=== PATIENT | male | born 1940 | race Caucasian/White ===

== ENCOUNTER 2019-10-05 08:44 | Emergency (ER) | payer MEDICARE, SELFPAY ==
[2019-10-05 08:46] VITALS: BP 130/53; PULSE 52; RESP 16; TEMP 36.4; O2SAT 99; BMI 26.5
[2019-10-05 08:49] VITALS: BP 130/53; PULSE 52; RESP 16; TEMP 36.4; O2SAT 99
--- NOTE | 2019-10-05 09:27 | ED.DCSUM_ITS ---
History of Present Illness <Ilda Peraza - Last Filed: 10/05/19 09:27> Informant: Patient Onset: Yesterday Context: Gradual Onset Timing: Continuous Quality: Wound Location: Left foot Current Severity: Moderate Maximum Severity: Moderate Worsened by: Nothing Relieved by: Nothing Associated Symptoms: Denies Narrative: 78-year-old male sent in from urgent care for a wound on his left foot. He has a scrape between his fourth and fifth toes and has noticed some surrounding redness and is concerned for infection. No fevers. No trauma that he remembers. He does have some neuropathy, he is not a diabetic, but he does not regularly follow with a doctor. He has no other complaints at this time. He is not on daily medicines. Prior similar symptoms: No Recent Illness/Hospitalization: No <Raghu Bond - Last Filed: 10/05/19 10:07> Chief Complaint: Cellulitis Past Medical History Smoking Status: Former smoker <JimbojulianBudyuval - Last Filed: 10/05/19 09:27> Prior records reviewed: Yes Past Medical History: - - Patient has peripheral neuropathy per history Surgical History: no surgical history Lives: Alone Smoking Status: Former smoker Alcohol: Occasional Drugs: None <Raghu Bond - Last Filed: 10/05/19 10:07> - Allergies and Home Meds Allergies/Adverse Reactions: Allergies No Known Allergies Allergy (Verified 10/05/19 08:44) Primary Care Physician: NOT,DEFINED [Primary Care Provider] - Review of Systems All systems negative except as indicated General: Denies: Chills, Fever, Malaise Eyes: Denies: Visual changes - bilaterally, Blurred Vision - bilaterally, Diplopia ENT: Denies: Rhinorrhea, Sore throat Cardiovascular: Denies: Chest pain, Palpitations, Heart racing Respiratory: Denies: Dyspnea, Cough, Sputum Gastrointestinal: Denies: Abdominal pain, Nausea, Vomiting, Diarrhea Genitourinary: Denies: Dysuria, Hematuria, Frequency Musculoskeletal: Reports: Extremity Pain. Denies: Myalgias, Arthralgias, Neck pain, Back pain, Swelling Skin: Reports: Abscess, Wounds. Denies: Rash, Abrasions Neurological: Denies: Headache, Weakness, Parasthesia, Numbness Endocrine: Denies: Polyuria, Polydipsia <Raghu Bond Last Filed: 10/05/19 10:07> Physical Exam Vital Signs/Narrative: Vital Signs Temp Pulse Resp BP Pulse Ox 10/05/19 08:49 97.5 F L 52 L 16 130/53 H 99 10/05/19 08:46 97.5 F L 52 L 16 130/53 H 99 <Ilda Peraza - Last Filed: 10/05/19 09:27> Vital Signs/Narrative: Vital Signs Temp Pulse Resp BP Pulse Ox 10/05/19 08:49 97.5 F L 52 L 16 130/53 H 99 10/05/19 08:46 97.5 F L 52 L 16 130/53 H 99 Inital Vital Signs reviewed: Yes General: Well nourished, Well developed, No Acute Distress Head: Normocephalic, Atraumatic Eyes: Perrl, EOMI ENT: Moist mucous membranes, No rhinorrhea Neck: Supple, Nontender, No lymphadenopathy, No JVD Cardiovascular: Regular rate, Regular rhythm, No murmurs Respiratory: No distress, CTA bilaterally, Chest nontender Abdomen: Soft, Nontender, Nondistended, Normal bowel sounds, No masses Back: Nontender, Normal Inspection Extremities: Nontender, - - Is an abrasion between his fourth and fifth toes of the left foot with surrounding redness and cellulitis extending to the dorsum of the foot approximately to the middle of the dorsum of the foot. There is no redness on the plantar aspect. There is no lymphatic streaking past that point into the proximal foot or up the leg. DP and PT pulse normal as is capillary refill. He has diminished sensation of all 10 toes on both feet which he states is chronic. Skin: Normal color, No rash, No Trauma Neurological: Alert, Oriented x3 Psychological: Normal affect, Normal Mood <Raghu Bond - Last Filed: 10/05/19 10:07> Diagnostic/Tx/Re-eval - Medical Decision Making Patient was seen with Vlad agree with history and physical as above The patient presents with redness and swelling and basically defect of the skin left foot he works at [employer] he does not recall specific injury but reports he may have dropped a pallet or floor brunilda type device on his foot he does not have diabetes but reports he cannot feel his toes he was seen in urgent care and sent to the hospital on exam he has obvious infection involving the left foot there is a defect in the skin between the fourth and fifth toes left foot no foul odor no crepitance neurovascular normal He refuses admission screening labs x-ray see the chart for full details <Ilda Peraza - Last Filed: 10/05/19 09:27> - Medical Decision Making Patient's vital signs are stable. His laboratory work-up is unremarkable. X- ray is unremarkable. He was given IV antibiotics in the emergency department. At this time we do not feel he requires admission. He is not septic. He has no osteomyelitis. We did send a wound culture. He will be started on Bactrim and Keflex. I spoke with the on-call kitchen helper Dr. jon for close follow-up for the patient. He will be discharged home and given return precautions and I instructed him on proper wound care as well. <Raghu Bond - Last Filed: 10/05/19 10:07> ED Disposition <JimbojulianKristopherjerry - Last Filed: 10/05/19 09:27> <Raghu Bond - Last Filed: 10/05/19 10:07> - Plan for ED Patient: Disposition: Home or Assisted Living Diagnosis: Infected abrasion of left foot, Peripheral neuropathy Instructions: Cellulitis, ED PERIPHERAL NEUROPATHY Prescriptions: Smz/Tmp Ds [Bactrim Ds] 1 tab PO BID #14 tab Prescription Printed Cephalexin [Keflex] 500 mg PO Q12 #14 cap Prescription Printed Referrals: Carol Jon DPM [STAFF PHYSICIAN] - 1 Day
[2019-10-05 09:30] LABS: Absolute Lymphocyte Count 2.38 X10^3/uL (0.83-4.51); Absolute Neutrophil Count 7.6 X10^3/uL (2.0-7.7); Basophil# 0.03 X10^3/uL; Basophil% 0.3 % (0-1); Eosinophil# 0.22 X10^3/uL; Eosinophils% 1.9 % (0-5); Hematocrit 44.2 % (40-54); Hemoglobin 13.6 g/dL (13.0-16.5); Lymphocyte # 2.38 X10^3/ul (4.0); Lymphocyte % 20.9 % (19-41); Mean Corp Hgb Conc 30.8 g/dL (32-36); Mean Corpuscular Hgb 27.3 pg (27.0-32.0); Mean Corpuscular Volume 88.8 fL (80-94); Mean Platelet Vol. 9.6 fl (6.2-12.0); Monocyte# 1.13 X10^3/uL; Monocyte% 9.9 % (0-10); NRBC Flagged by Analyzer 0 % (0-5); Neutrophil % 66.7 % (47-70); Platelet Count 216 K/mm3 (150-450); RBC Distribution Width CV 14.2 % (11.6-14.6); RBC Distribution Width SD 45.7 fl (35.1-43.9); Red Blood Count 4.98 M/mm3 (4.6-6.2); White Blood Count 11.4 K/mm3 (4.4-11.0)
--- NOTE | 2019-10-05 09:30 | RAD_ITS ---
STUDY: X-RAY - LEFT FOOT CLINICAL: Male, 78 years old. SENT FOR INFECTION IN LEFT FOOT. BURNING SWELLING REDNESS AND PAIN. POSSIBLY STEPPED ON SOMETHING. TECHNIQUE: 3 view(s) of the foot. COMPARISON: None. FINDINGS: Plantar and dorsal spurs of the calcaneus Normal visualized subtalar, talonavicular, calcaneocuboid, tarsal and tarsometatarsal articulations. Normal metatarsi. There is degenerative arthrosis of the metatarsophalangeal joint of the hallux . Normal tibial and fibular sesamoid bones. Normal interphalangeal joint of the great toe. Normal phalanges of the great toe. Normal second through fifth metatarsophalangeal joints. Normal interphalangeal joints and phalanges of the lesser toes. The soft tissue structures are unremarkable. There is no demonstrated fracture. RAD/Foot min 3 Views IMPRESSION: Arthritic change with spurring. No foreign body. No fracture or focal destruction. Electronically Signed: Kevin Lomax MD at 9:54 EDT , Service support ,
[2019-10-05 09:41] LABS: Anion Gap 7 (5-15); BUN 24 mg/dL (7-18); BUN/Creat Ratio 20.5 RATIO (10-20); Calcium,Total 8.4 mg/dL (8.5-10.1); Chloride 111 mmol/L (98-107); Creatinine, Serum 1.17 mg/dL (0.70-1.30); EST Glomerular Filtration Rate 64 mL/min (>60); Est Glom Filt Rate - Afr Amer 77 mL/min (>60); Estimated Creatinine Clearance 51.99 ml/min; Glucose 100 mg/dL (74-106); Potassium 4.3 mmol/L (3.5-5.1); Sodium Level 144 mmol/L (136-145)
[2019-10-05] MEDS: Ceftriaxone 1 GM/50 ML BAG IV (09:57)
[2019-10-05 11:10] VITALS: BP 142/84; PULSE 76; RESP 18; O2SAT 99
== END 2019-10-05 11:11 | disposition home or self-care (01) ==
LOC: ED 10:19
PROVIDERS: Emergency Provider Physician Assistant Medical
DX: S90.812A Abrasion, left foot, initial encounter (principal); L08.9 Local infection of the skin and subcutaneous tissue, unspecified; G62.9 Polyneuropathy, unspecified; Z87.891 Personal history of nicotine dependence; X58.XXXA Exposure to other specified factors, initial encounter; Y93.89 Activity, other specified; Y92.89 Other specified places as the place of occurrence of the external cause; Y99.8 Other external cause status
CPT/HCPCS: 73630; 80048; 85025; 87070; 87077; 87186; 87205; 96365; 99283; J7050